=== PATIENT | male | born 1950 | race Caucasian/White ===

== ENCOUNTER 2019-08-26 01:59 | Emergency (ER) | payer OTHER ==
[~2019-08-26] VITALS: Ht 177.8 cm; Wt 140.6 kg
[2019-08-26] MEDS ORDERED: ACET500 PO (02:51)
[2019-08-26] MEDS ORDERED: ALBU3IS INH (02:52)
[2019-08-26] MEDS ORDERED: ALLO300 PO (02:52)
[2019-08-26] MEDS ORDERED: ATOR40TA PO (02:53)
[2019-08-26] MEDS ORDERED: BENZ100A PO (02:53)
[2019-08-26] MEDS ORDERED: BUDE6HFA INH (02:54)
[2019-08-26] MEDS ORDERED: CARV6.25 PO (02:54)
[2019-08-26] MEDS ORDERED: BUPR150ER PO (02:54)
[2019-08-26] MEDS ORDERED: CELE100 PO (02:55)
[2019-08-26] MEDS ORDERED: Prozac20 MG PO (02:56)
[2019-08-26] MEDS ORDERED: GABA100 PO (02:56)
[2019-08-26] MEDS ORDERED: FINA5 PO (02:56)
[2019-08-26] MEDS ORDERED: GUAI200 PO (02:57)
[2019-08-26] MEDS ORDERED: LOSA50 PO (02:59)
[2019-08-26] MEDS ORDERED: PRAZ1 PO (02:59)
[2019-08-26] MEDS ORDERED: METF500 PO (02:59)
[2019-08-26] MEDS ORDERED: Zantac150 MG PO (03:00)
[2019-08-26] MEDS ORDERED: TAMS.4ER PO (03:00)
[2019-08-26 03:29] LABS: BASOPHILS ABSOLUTE AUTO 0.09 K/mm3 (0.00-0.23); BASOPHILS PERCENT AUTO 1 % (0-2); EOSINOPHILS ABSOLUTE AUTO 0.48 K/mm3 (0.00-0.68); EOSINOPHILS PERCENT AUTO 5 % (0-6); Hemoglobin 13.9 g/dL (13.5-17.5); IMMATURE GRAN ABSOLUTE AUTO 0.02 K/mm3 (0.00-0.10); IMMATURE GRAN PERCENT AUTO 0 % (0-1); LYMPHOCYTES ABSOLUTE AUTO 2.24 K/mm3 (0.84-5.20); LYMPHOCYTES PERCENT AUTO 25 % (21-46); MONOCYTES ABSOLUTE AUTO 1.19 K/mm3 (0.16-1.47); MONOCYTES PERCENT AUTO 14 % (4-13); Mean Corpuscular HGB 29.3 pg (26.0-34.0); Mean Corpuscular HGB Conc 30.9 g/dL (31.5-36.5); Mean Corpuscular Volume 95 fL (80-100); Mean Platelet Volume 9.8 fL (9.1-12.4); NEUTROPHILS ABSOLUTE AUTO 4.82 K/mm3 (1.96-9.15); NEUTROPHILS PERCENT AUTO 55 % (41-73); Platelet Count 203 K/mm3 (150-400); RDW Coefficient Variation 13.9 % (11.7-14.2); Red Blood Cell Count 4.74 M/mm3 (4.30-5.90); White Blood Cell Count 8.84 K/mm3 (4.00-11.30)
[2019-08-26 03:46] LABS: Alanine Aminotransfer (ALT/SGP 30 U/L (12-78); Albumin, Blood 3.8 g/dL (3.4-5.0); Albumin/Globulin Ratio 1.3 (0.8-1.8); Alk Phos 73 U/L (50-136); Anion Gap 6 mmol/L (6-16); Aspartate Aminotrans (AST/SGOT 21 U/L (12-37); Bilirubin, Total 1.1 mg/dL (0.1-1.0); Blood Urea Nitrogen 18 mg/dL (8-24); Bun/Creatinine Ratio 20.8 (12.0-20.0); CO2, Blood 29 mmol/L (21-32); Chloride, Blood 103 mmol/L (98-108); Creatinine, Blood 0.86 mg/dL (0.60-1.20); Glomerular Filtration Rate >60 (60-); Glucose, Blood 116 mg/dL (70-99); Potassium, Blood 4.2 mmol/L (3.5-5.5); Sodium, Blood 138 mmol/L (136-145); Total Protein, Blood 6.8 g/dL (6.4-8.2)
[2019-08-26] MEDS ORDERED: Prednisone20 MG PO (07:01)
== END 2019-08-26 07:08 | disposition home or self-care (01) ==
LOC: ER 01:59
PROVIDERS: Emergency Medicine
DX: J44.1 Chronic obstructive pulmonary disease with (acute) exacerbation (principal); Z79.899 Other long term (current) drug therapy; Z79.84 Long term (current) use of oral hypoglycemic drugs
CPT/HCPCS: 36415; 71046; 71260; 80053; 83880; 84484; 85025; 93005; 93010; 94644; 96374-59; 99285-25; J2930; Q9967

== ENCOUNTER 2019-09-22 14:58 | Emergency (ER) | payer OTHER ==
[~2019-09-22] VITALS: Ht 177.8 cm; Wt 140.6 kg
[~2019-09-22 14:58] MED LIST: ACET500 PO; ALBU3IS INH; ALLO300 PO; ATOR40TA PO; BENZ100A PO; BUDE6HFA INH; BUPR150ER PO; CARV6.25 PO; CELE100 PO; FINA5 PO; GABA100 PO; GUAI200 PO; LOSA50 PO; METF500 PO; PRAZ1 PO; Prednisone20 MG PO; Prozac20 MG PO; TAMS.4ER PO; Zantac150 MG PO
[2019-09-22 15:22] LABS: BASOPHILS ABSOLUTE AUTO 0.07 K/mm3 (0.00-0.23); BASOPHILS PERCENT AUTO 1 % (0-2); EOSINOPHILS PERCENT AUTO 17 % (0-6); Hemoglobin 14.9 g/dL (13.5-17.5); IMMATURE GRAN ABSOLUTE AUTO 0.02 K/mm3 (0.00-0.10); IMMATURE GRAN PERCENT AUTO 0 % (0-1); LYMPHOCYTES ABSOLUTE AUTO 2.45 K/mm3 (0.84-5.20); LYMPHOCYTES PERCENT AUTO 28 % (21-46); MONOCYTES ABSOLUTE AUTO 0.97 K/mm3 (0.16-1.47); MONOCYTES PERCENT AUTO 11 % (4-13); Mean Corpuscular HGB 29.8 pg (26.0-34.0); Mean Corpuscular Volume 96 fL (80-100); Mean Platelet Volume 9.2 fL (9.1-12.4); NEUTROPHILS ABSOLUTE AUTO 3.83 K/mm3 (1.96-9.15); NEUTROPHILS PERCENT AUTO 43 % (41-73); Platelet Count 213 K/mm3 (150-400); RDW Coefficient Variation 13.9 % (11.7-14.2); RDW Standard Deviation 49.4 fL (35.1-46.3); White Blood Cell Count 8.84 K/mm3 (4.00-11.30)
[2019-09-22 15:43] LABS: Alanine Aminotransfer (ALT/SGP 34 U/L (12-78); Albumin/Globulin Ratio 1.2 (0.8-1.8); Alk Phos 71 U/L (50-136); Anion Gap 8 mmol/L (6-16); Aspartate Aminotrans (AST/SGOT 17 U/L (12-37); Bilirubin, Total 1.2 mg/dL (0.1-1.0); Blood Urea Nitrogen 11 mg/dL (8-24); Bun/Creatinine Ratio 16.4 (12.0-20.0); CO2, Blood 28 mmol/L (21-32); Calcium, Blood 9.7 mg/dL (8.5-10.1); Chloride, Blood 104 mmol/L (98-108); Creatinine, Blood 0.67 mg/dL (0.60-1.20); Globulin, Blood 3.2 g/dL (2.2-4.0); Glomerular Filtration Rate >60 (60-); Glucose, Blood 107 mg/dL (70-99); Potassium, Blood 4.6 mmol/L (3.5-5.5); Sodium, Blood 140 mmol/L (136-145); Total Protein, Blood 7.2 g/dL (6.4-8.2)
[2019-09-22] MEDS ORDERED: Prednisone20 MG PO (16:32)
[2019-09-22] MEDS ORDERED: Zithromax250 MG PO (16:32)
== END 2019-09-22 17:10 | disposition home or self-care (01) ==
LOC: ER 14:58
PROVIDERS: Physician Assistant
DX: J44.1 Chronic obstructive pulmonary disease with (acute) exacerbation (principal); E66.01 Morbid (severe) obesity due to excess calories; Z68.41 Body mass index [BMI] 40.0-44.9, adult; Z79.899 Other long term (current) drug therapy; Z79.51 Long term (current) use of inhaled steroids; Z79.84 Long term (current) use of oral hypoglycemic drugs
CPT/HCPCS: 71046; 80053; 83880; 85025; 93005; 93010; 96374; 99284-25; J2930

== ENCOUNTER 2023-02-14 19:04 | Inpatient (IN) | payer OTHER ==
[~2023-02-14] VITALS: Ht 180.3 cm; Wt 144.3 kg
[~2023-02-14 19:04] MED LIST changes: +CEPH500 PO; +MECL25 PO; +Zithromax250 MG PO
[2023-02-14 19:46] LABS: BASOPHILS ABSOLUTE AUTO 0.08 K/mm3 (0.00-0.23); BASOPHILS PERCENT AUTO 1 % (0-2); EOSINOPHILS ABSOLUTE AUTO 0.22 K/mm3 (0.00-0.68); EOSINOPHILS PERCENT AUTO 2 % (0-6); Hematocrit 40.8 % (37.0-53.0); Hemoglobin 13.1 g/dL (13.5-17.5); IMMATURE GRAN ABSOLUTE AUTO 0.05 K/mm3 (0.00-0.10); IMMATURE GRAN PERCENT AUTO 1 % (0-1); LYMPHOCYTES ABSOLUTE AUTO 2.14 K/mm3 (0.84-5.20); LYMPHOCYTES PERCENT AUTO 21 % (21-46); MONOCYTES ABSOLUTE AUTO 1.29 K/mm3 (0.16-1.47); MONOCYTES PERCENT AUTO 13 % (4-13); Mean Corpuscular HGB 29.6 pg (26.0-34.0); Mean Corpuscular HGB Conc 32.1 g/dL (31.5-36.5); Mean Corpuscular Volume 92 fL (80-100); Mean Platelet Volume 9.5 fL (9.1-12.4); NEUTROPHILS ABSOLUTE AUTO 6.41 K/mm3 (1.96-9.15); NEUTROPHILS PERCENT AUTO 63 % (41-73); Platelet Count 404 K/mm3 (150-400); RDW Coefficient Variation 13.3 % (11.7-14.2); RDW Standard Deviation 45.7 fL (35.1-46.3); Red Blood Cell Count 4.42 M/mm3 (4.30-5.90); White Blood Cell Count 10.19 K/mm3 (4.00-11.30)
[2023-02-14 19:54] LABS: Base Excess Venous 0.1 mmol/L; Bicarbonate Venous 24.1 mmol/L (24.0-30.0); PCO2 Venous 42.8 mmHg (38-42); pH Blood Venous 7.38 (7.34-7.37)
[2023-02-14 20:01] LABS: Albumin, Blood 2.9 g/dL (3.4-5.0); Albumin/Globulin Ratio 0.7 (0.8-1.8); Bilirubin, Total 0.9 mg/dL (0.1-1.0); Bun/Creatinine Ratio 10.9 (12.0-20.0); Calcium, Blood 9.1 mg/dL (8.5-10.1); Creatinine, Blood 1.75 mg/dL (0.60-1.20); Potassium, Blood 2.9 mmol/L (3.5-5.5); Total Protein, Blood 6.9 g/dL (6.4-8.2)
[2023-02-14 20:29] LABS: Creatine Kinase MB Index 0.4 (0.0-4.0)
[2023-02-14 21:43] LABS: Source, Urine Foley catheter
[2023-02-14 21:47] LABS: Bilirubin, Urine Neg (Neg); Blood, Urine 5+ (Neg); Glucose Qualitative, Urine Neg (Neg); Ketones, Urine Neg (Neg); Leukocyte Esterase, Urine 1+ (Neg); Nitrite, Urine Neg (Neg); Protein, Urine 3+ (Neg); Specific Gravity, Urine 1.015 (1.003-1.022); Urobilinogen, Urine NORM (Normal)
[2023-02-14 22:00] LABS: Appearance, Urine Hazy (Clear); Color, Urine Yellow (P-Yellow)
[2023-02-14 22:01] LABS: Bacteria Few /hpf; Red Blood Cells, Urine TNTC /hpf (0-2); Squamous Epithelial Cells Not Seen /hpf (Few); White Blood Cells, Urine 25-50 /hpf (0-5)
[2023-02-14 22:52] LABS: Bun/Creatinine Ratio 10.4 (12.0-20.0); Calcium, Blood 8.6 mg/dL (8.5-10.1); Creatinine, Blood 1.83 mg/dL (0.60-1.20); Potassium, Blood 3.2 mmol/L (3.5-5.5)
[2023-02-15 00:03] LABS: Source, Urine Clean Catch
[2023-02-15 00:05] LABS: Bilirubin, Urine Neg (Neg); Blood, Urine 5+ (Neg); Glucose Qualitative, Urine Neg (Neg); Ketones, Urine 1+ (Neg); Leukocyte Esterase, Urine 2+ (Neg); Nitrite, Urine Pos (Neg); Protein, Urine 4+ (Neg); Urobilinogen, Urine NORM (Normal)
[2023-02-15 00:18] LABS: Appearance, Urine Cloudy (Clear); Bacteria Mod /hpf; Color, Urine Red (P-Yellow); Red Blood Cells, Urine TNTC /hpf (0-2); Squamous Epithelial Cells Not Seen /hpf (Few); White Blood Cells, Urine 25-50 /hpf (0-5)
[2023-02-15 03:08] VITALS: BP 162/94
--- NOTE | 2023-02-15 04:23 | NUR ---
SHIFT SUMMARY PT ADMITTED THIS AM FROM THE ED AT 0250, REPORT RECEIVED FROM KLEVER CARRION. PT AOX4 AND PLEASANT, COOPERATIVE. HE IS ON BEDREST FOR NOW DUE TO HIS SEVERE WEAKNESS, PT/OT THERAPY IS ORDERED. HE HAD A FLANAGAN CATHETER PLACED IN THE ED TO MONITOR STRICT I'S AND O'S. HE IS ON TELE, SR. PT STATES HE HAS NOT EATEN IN THREE DAYS DUE TO BEING DOWN AT HOME. HE WAS NAUSEOUS THIS AM AND MEDICATED PER THE EMAR. HE IS NOW RESTING COMFORTABLY, ATTEMPTING TO SLEEP. CALL LIGHT IS WITHIN REACH AND BED IN THE LOWEST POSITION. WILL REPORT TO ONCOMING NURSE.
[2023-02-15 07:32] VITALS: BP 120/61
[2023-02-15 08:01] LABS: BASOPHILS ABSOLUTE AUTO 0.07 K/mm3 (0.00-0.23); BASOPHILS PERCENT AUTO 1 % (0-2); EOSINOPHILS ABSOLUTE AUTO 0.29 K/mm3 (0.00-0.68); EOSINOPHILS PERCENT AUTO 3 % (0-6); Hematocrit 38.9 % (37.0-53.0); Hemoglobin 12.6 g/dL (13.5-17.5); IMMATURE GRAN ABSOLUTE AUTO 0.05 K/mm3 (0.00-0.10); IMMATURE GRAN PERCENT AUTO 1 % (0-1); LYMPHOCYTES ABSOLUTE AUTO 1.96 K/mm3 (0.84-5.20); LYMPHOCYTES PERCENT AUTO 23 % (21-46); MONOCYTES ABSOLUTE AUTO 1.12 K/mm3 (0.16-1.47); MONOCYTES PERCENT AUTO 13 % (4-13); Mean Corpuscular HGB 30.1 pg (26.0-34.0); Mean Corpuscular HGB Conc 32.4 g/dL (31.5-36.5); Mean Corpuscular Volume 93 fL (80-100); Mean Platelet Volume 9.4 fL (9.1-12.4); NEUTROPHILS ABSOLUTE AUTO 5.23 K/mm3 (1.96-9.15); NEUTROPHILS PERCENT AUTO 60 % (41-73); Platelet Count 276 K/mm3 (150-400); RDW Coefficient Variation 13.7 % (11.7-14.2); RDW Standard Deviation 46.6 fL (35.1-46.3); Red Blood Cell Count 4.18 M/mm3 (4.30-5.90); White Blood Cell Count 8.72 K/mm3 (4.00-11.30)
[2023-02-15 08:22] LABS: Albumin, Blood 2.6 g/dL (3.4-5.0); Albumin/Globulin Ratio 0.7 (0.8-1.8); Bilirubin, Total 0.6 mg/dL (0.1-1.0); Bun/Creatinine Ratio 8.7 (12.0-20.0); Calcium, Blood 8.3 mg/dL (8.5-10.1); Creatinine, Blood 2.07 mg/dL (0.60-1.20); Globulin, Blood 3.6 g/dL (2.2-4.0); Magnesium, Blood 1.9 mg/dL (1.6-2.4); Phosphorus, Blood 3.2 mg/dL (2.5-4.9); Total Protein, Blood 6.2 g/dL (6.4-8.2)
[2023-02-15 16:10] VITALS: BP 148/79
--- NOTE | 2023-02-15 18:04 | NUR ---
SHIFT SUMMARY PT WITH PT/OT TODAY. ABLE TO SIT UP WITH P.T. AND STAND A COUPLE TIMES WITH O.T. REQUIRES ASSISTANCE WITH SITTING UP IN BED. REPORTS PAIN TO BACK THIS AFTERNOON WHICH HE SAYS HE DOESN'T GENERALLY HAVE. TYLENOL GIVEN. WITH MONITER FOR EFFECTIVENESS. HAD NAUSEA THIS MORNING WHICH DID RESOLVE SLOWLY AFTER ZOFRAN, SLY MIST AND CRACKERS GIVEN. SMALL CLOTS SEEN IN CATHETER TUBING TODAY. REQUESTING MASHA TO STAY IN FOR ANOTHER NIGHT.
[2023-02-15 19:29] VITALS: BP 137/69
--- NOTE | 2023-02-16 04:18 | NUR ---
SHIFT SUMMARY PATIENT HAD NO ACUTE CHANGES. AXOX 4 AND BEDREST. PIV REMAINS INTACT. NS INFUSING AT 150 mL/HR. TELE MONITOR NSR 86. FLANAGAN PATENT AND DRAINING PIMK TINGED URINE. REPORTED BACK PAIN X ONE AND TYLENOL 1,000 MG GIVEN PER EMAR. DENIES CHEST PAIN, SOB, AND N/V. VSS/AFEBRILE. CALL LIGHT IN REACH. BED IN LOWEST POSITION. WILL CONTINUE TO MONITOR UNTIL DAY SHIFT NURSE ASSUMES CARE.
[2023-02-16 04:43] VITALS: BP 137/77
[2023-02-16 04:53] LABS: BASOPHILS ABSOLUTE AUTO 0.07 K/mm3 (0.00-0.23); BASOPHILS PERCENT AUTO 1 % (0-2); EOSINOPHILS ABSOLUTE AUTO 0.29 K/mm3 (0.00-0.68); EOSINOPHILS PERCENT AUTO 4 % (0-6); Hematocrit 34.4 % (37.0-53.0); Hemoglobin 10.7 g/dL (13.5-17.5); IMMATURE GRAN ABSOLUTE AUTO 0.08 K/mm3 (0.00-0.10); IMMATURE GRAN PERCENT AUTO 1 % (0-1); LYMPHOCYTES PERCENT AUTO 25 % (21-46); MONOCYTES PERCENT AUTO 11 % (4-13); Mean Corpuscular HGB 29.4 pg (26.0-34.0); Mean Corpuscular HGB Conc 31.1 g/dL (31.5-36.5); Mean Corpuscular Volume 95 fL (80-100); Mean Platelet Volume 9.9 fL (9.1-12.4); NEUTROPHILS ABSOLUTE AUTO 4.74 K/mm3 (1.96-9.15); NEUTROPHILS PERCENT AUTO 59 % (41-73); Platelet Count 228 K/mm3 (150-400); RDW Coefficient Variation 13.7 % (11.7-14.2); RDW Standard Deviation 47.7 fL (35.1-46.3); Red Blood Cell Count 3.64 M/mm3 (4.30-5.90); White Blood Cell Count 8.08 K/mm3 (4.00-11.30)
[2023-02-16 08:47] LABS: Bun/Creatinine Ratio 9.2 (12.0-20.0); Calcium, Blood 8.2 mg/dL (8.5-10.1); Creatinine, Blood 2.4 mg/dL (0.60-1.20); Potassium, Blood 3.2 mmol/L (3.5-5.5)
[2023-02-16 16:36] VITALS: BP 123/63
--- NOTE | 2023-02-16 18:40 | NUR ---
SUMMARY- PT DID FEEL SOB TODAY-STARTED PT ON 2 L O2. PT DID FEEL BETER AFTER O2 PLACEMENT. PT REFUSED PT TWICE TODAY. RN ENCOURAGED MOVEMENT AND PT REFUSED. PT'S APPETITE DECREASED TODAY. PAIN CONTROLLED WITH TYLENOL.
[2023-02-16 19:34] VITALS: BP 116/54
[2023-02-16 20:41] LABS: Eosinophils-Raw #,Urine 0
[2023-02-17 02:40] VITALS: BP 152/76
[2023-02-17 05:02] LABS: Albumin, Blood 2.5 g/dL (3.4-5.0); Anion Gap 7 mmol/L (6-16); Blood Urea Nitrogen 25 mg/dL (8-24); CO2, Blood 21 mmol/L (21-32); Calcium, Blood 8.7 mg/dL (8.5-10.1); Chloride, Blood 113 mmol/L (98-108); Creatinine, Blood 2.28 mg/dL (0.60-1.20); Glomerular Filtration Rate 29 (60-); Glucose, Blood 136 mg/dL (70-99); Phosphorus, Blood 3.2 mg/dL (2.5-4.9); Potassium, Blood 3.7 mmol/L (3.5-5.5); Sodium, Blood 141 mmol/L (136-145)
--- NOTE | 2023-02-17 05:53 | NUR ---
INFERTILITY NURSE SUMMARY PT A/OX3; PT HAVING EPISODIC CONFUSION/FORGETFULNESS. PT DID NOT SLEEP WELL AND C/O 10/10 PAIN IN ABD/FLANK. NEW ORDER FOR 25-50MCG FENTANYL Q4. MED PER EMAR. PT VERY RESTLESS T/O THE NIGHT. PT ON 3L O2 NC; PT KEEPS PULLING O2 OFF. FOUND PT THIS AM W/FLANAGAN CATH DISCONNECTED, IV PULLED OUT, O2 OFF, TELE PULLED OFF, AND NAKED SITTING AT BEDSIE. PT WAS CONFUSED ABOUT HE GOT THERE IN THAT STATE. PT VERY WEAK AND NOT ABLE TO STAND TO PIVOT TO BSC. PLACED ON BEDPAN BUT PT NOT ABLE TO HAVE BM; PER PT NO BM SINCE FALL AT HOME. BED ALARM SET AND CALL LIGHT ACCESSIBLE.
[2023-02-17 07:22] VITALS: BP 132/61
--- NOTE | 2023-02-17 17:16 | NUR ---
Day Treatment Clinician/Art Therapist: Shraddha had the SOFTWARE QUALITY TEST ENGINEER Ayla fix the patients Tele multiple times. As soon as she leaves the room the patient then starts to take the tele off. Nurse Bindu said she would contact the DR to see what action to take next.
[2023-02-17 18:19] VITALS: BP 156/82
--- NOTE | 2023-02-17 19:13 | NUR ---
SHIFT SUMMARY PT SOB THROUGH THE DAY. PALE THIS EVENING AND ELEVATED RESP. SATS HIGH 90'S. REMOVED O2 AND DISCUSSED WITH ONCOMING RN. COLORING IMPROVED DURING BEDSIDE SHIFT REPORT. PT REPORTS BEING HOT AND COLD AND STATES IT IS FROM HIS LUPRON. PAIN IMPROVED AFTER TRAMADOL GIVEN. SWELLING IN LEGS WORSE AFTER BEING IN CHAIR FOR A PERIOD OF TIME AT LUNCH.
[2023-02-17 20:02] VITALS: BP 150/78
[2023-02-18 02:39] VITALS: BP 147/76
--- NOTE | 2023-02-18 04:21 | NUR ---
PHYSICAL THERAPIST CENTER MANAGER SUMMARY PT A/OX4. PT HAS BEEN MUCH MORE ORIENTED THIS SHIFT THAN PREVIOUS PHYSICAL THERAPIST CENTER MANAGER. ABLE TO MAKE NEEDS KNOWN. PT REPORTS PAIN MUCH MORE CONTROLLED WITH TRAMODOL AND ABLE TO SLEEP RESTFULLY T/O THE NIGHT. PT USING NC 02 INTERMITTANTLY WHEN SOB AND WHILE SLEEPING. PT CONT TO HAVE SUBSTANTIAL URINE OUT PUT--URINE HAS REDISH TINGE. NOTE FROM DR CATALAN TO LEAVE FLANAGAN INPLACE DUE TO POSSIBLE BLADDER OBSTRUCTION. PT TO FOLLOW UP WITH UROLOGIST.
[2023-02-18 05:22] LABS: BASOPHILS ABSOLUTE AUTO 0.05 K/mm3 (0.00-0.23); BASOPHILS PERCENT AUTO 1 % (0-2); EOSINOPHILS ABSOLUTE AUTO 0.26 K/mm3 (0.00-0.68); EOSINOPHILS PERCENT AUTO 3 % (0-6); Hematocrit 38.4 % (37.0-53.0); Hemoglobin 11.9 g/dL (13.5-17.5); IMMATURE GRAN ABSOLUTE AUTO 0.11 K/mm3 (0.00-0.10); IMMATURE GRAN PERCENT AUTO 2 % (0-1); LYMPHOCYTES ABSOLUTE AUTO 1.75 K/mm3 (0.84-5.20); LYMPHOCYTES PERCENT AUTO 23 % (21-46); MONOCYTES ABSOLUTE AUTO 1.12 K/mm3 (0.16-1.47); MONOCYTES PERCENT AUTO 15 % (4-13); Mean Corpuscular HGB 29.5 pg (26.0-34.0); Mean Corpuscular Volume 95 fL (80-100); Mean Platelet Volume 9.5 fL (9.1-12.4); NEUTROPHILS ABSOLUTE AUTO 4.28 K/mm3 (1.96-9.15); NEUTROPHILS PERCENT AUTO 57 % (41-73); Platelet Count 230 K/mm3 (150-400); RDW Coefficient Variation 13.6 % (11.7-14.2); Red Blood Cell Count 4.04 M/mm3 (4.30-5.90); White Blood Cell Count 7.57 K/mm3 (4.00-11.30)
[2023-02-18 05:56] LABS: Albumin, Blood 2.4 g/dL (3.4-5.0); Anion Gap 4 mmol/L (6-16); Blood Urea Nitrogen 22 mg/dL (8-24); Bun/Creatinine Ratio 12.9 (12.0-20.0); CO2, Blood 25 mmol/L (21-32); Calcium, Blood 9.1 mg/dL (8.5-10.1); Chloride, Blood 114 mmol/L (98-108); Glomerular Filtration Rate 42 (60-); Glucose, Blood 114 mg/dL (70-99); Phosphorus, Blood 4.1 mg/dL (2.5-4.9); Potassium, Blood 3.9 mmol/L (3.5-5.5); Sodium, Blood 143 mmol/L (136-145)
[2023-02-18 07:11] VITALS: BP 141/73
[2023-02-18] MEDS ORDERED: DOCU100 PO (10:25)
[2023-02-18] MEDS ORDERED: LIDO700A20 TOP (10:25)
[2023-02-18] MEDS ORDERED: MIRALAX17 GM PO (10:26)
[2023-02-18 11:46] LABS: SARS-Cov-2 (COVID-19) PCR, MMC NEGATIVE (NEGATIVE)
--- NOTE | 2023-02-18 13:52 | NUR ---
DC- PT TRANSPORTED TO [facility] VIA WC. PT IN STABLE CONDITION. PT LEFT WITH FLANAGAN CATHETER IN PLACE PER BRICKLAYER SEWER ORDER. REPORT GIVEN TO [facility] SADE. ALL QUESTIONS ANSWERED. PT LEFT WITH ALL BELONGINGS. PT LEFT WITH O2 AT 2 L.
== END 2023-02-18 13:31 | DRG 683 ==
LOC: ER 19:04 → MEDS 19:05 → ENPENDDIS 02-18 10:13 → MEDS 02-18 13:31
PROVIDERS: Family Medicine; Internal Medicine; Internal Medicine Nephrology; Student in an Organized Health Care Education/Training Program; ADMIT Internal Medicine
PROC: 0T9B70Z Drainage of Bladder with Drainage Device, Via Natural or Artificial Opening (ICD-10-PCS; principal; 2023-02-14)
DX: N17.9 Acute kidney failure, unspecified (principal); E87.20 Acidosis, unspecified; M62.82 Rhabdomyolysis; Z68.41 Body mass index [BMI] 40.0-44.9, adult; G91.0 Communicating hydrocephalus; N13.6 Pyonephrosis; Z20.822 Contact with and (suspected) exposure to COVID-19; E66.01 Morbid (severe) obesity due to excess calories; I35.0 Nonrheumatic aortic (valve) stenosis; E86.0 Dehydration; J44.9 Chronic obstructive pulmonary disease, unspecified; I10 Essential (primary) hypertension; I25.10 Atherosclerotic heart disease of native coronary artery without angina pectoris; I25.9 Chronic ischemic heart disease, unspecified; G89.29 Other chronic pain; M54.9 Dorsalgia, unspecified; E87.6 Hypokalemia; N32.0 Bladder-neck obstruction; I71.9 Aortic aneurysm of unspecified site, without rupture; R31.9 Hematuria, unspecified; Z85.46 Personal history of malignant neoplasm of prostate; Z95.5 Presence of coronary angioplasty implant and graft; Z79.899 Other long term (current) drug therapy
CPT/HCPCS: 36415; 51702; 71046; 76770; 80048; 80053; 80069; 81001; 82550; 82553; 82570; 82803; 82947; 83605; 83690; 83735; 83880; 84100; 84156; 85025; 87040; 87086; 87205; 93005; 93010; 93306; 94640; 94664; 94760; 96361; 96361-59; 96365-59; 96375-59; 97110; 97112; 97161; 97166; 97530; 97535; 99285-25; A9270; G0378; J0696; J3010; J3480; J7030; U0004

== ENCOUNTER 2023-03-02 15:26 | Inpatient (IN) | payer OTHER ==
[~2023-03-02] VITALS: Ht 182.9 cm; Wt 144.8 kg
[~2023-03-02 15:26] MED LIST changes: +ALBU2.5V5 INH; -ALBU3IS INH; +DOCU100 PO; +LIDO700A20 TOP; +MIRALAX17 GM PO
[2023-03-02 16:44] LABS: BASOPHILS ABSOLUTE AUTO 0.04 K/mm3 (0.00-0.23); BASOPHILS PERCENT AUTO 1 % (0-2); EOSINOPHILS ABSOLUTE AUTO 0.17 K/mm3 (0.00-0.68); EOSINOPHILS PERCENT AUTO 2 % (0-6); Hematocrit 29.9 % (37.0-53.0); Hemoglobin 9.8 g/dL (13.5-17.5); IMMATURE GRAN ABSOLUTE AUTO 0.03 K/mm3 (0.00-0.10); IMMATURE GRAN PERCENT AUTO 0 % (0-1); LYMPHOCYTES ABSOLUTE AUTO 1.39 K/mm3 (0.84-5.20); LYMPHOCYTES PERCENT AUTO 17 % (21-46); MONOCYTES PERCENT AUTO 13 % (4-13); Mean Corpuscular HGB 29.2 pg (26.0-34.0); Mean Corpuscular HGB Conc 32.8 g/dL (31.5-36.5); Mean Corpuscular Volume 89 fL (80-100); Mean Platelet Volume 9.7 fL (9.1-12.4); NEUTROPHILS ABSOLUTE AUTO 5.37 K/mm3 (1.96-9.15); NEUTROPHILS PERCENT AUTO 67 % (41-73); Platelet Count 266 K/mm3 (150-400); RDW Coefficient Variation 14.2 % (11.7-14.2); RDW Standard Deviation 45.8 fL (35.1-46.3); Red Blood Cell Count 3.36 M/mm3 (4.30-5.90)
[2023-03-02 17:08] LABS: Albumin, Blood 2.7 g/dL (3.4-5.0); Albumin/Globulin Ratio 0.8 (0.8-1.8); Bilirubin, Total 0.9 mg/dL (0.1-1.0); Bun/Creatinine Ratio 8.8 (12.0-20.0); Calcium, Blood 8.8 mg/dL (8.5-10.1); Creatinine, Blood 6.81 mg/dL (0.60-1.20); Globulin, Blood 3.4 g/dL (2.2-4.0); Magnesium, Blood 1.8 mg/dL (1.6-2.4); Potassium, Blood 5.3 mmol/L (3.5-5.5); Total Protein, Blood 6.1 g/dL (6.4-8.2)
[2023-03-02 18:19] LABS: Source, Urine Clean Catch
[2023-03-02 18:25] LABS: Appearance, Urine Cloudy (Clear); Bilirubin, Urine Neg (Neg); Blood, Urine 4+ (Neg); Color, Urine Red (P-Yellow); Glucose Qualitative, Urine Neg (Neg); Ketones, Urine Neg (Neg); Leukocyte Esterase, Urine Neg (Neg); Nitrite, Urine Neg (Neg); Protein, Urine 4+ (Neg); Urobilinogen, Urine NORM (Normal)
[2023-03-02 18:52] LABS: Red Blood Cells, Urine TNTC /hpf (0-2)
[2023-03-02 18:53] LABS: Squamous Epithelial Cells Not Seen /hpf (Few); White Blood Cells, Urine 25-50 /hpf (0-5)
[2023-03-02 18:54] LABS: Bacteria Mod /hpf
[2023-03-02 20:21] VITALS: BP 144/78
[2023-03-03 03:23] VITALS: BP 132/74
[2023-03-03 03:36] LABS: Hematocrit 29.8 % (37.0-53.0); Hemoglobin 9.9 g/dL (13.5-17.5); Mean Corpuscular HGB 29.2 pg (26.0-34.0); Mean Corpuscular HGB Conc 33.2 g/dL (31.5-36.5); Mean Corpuscular Volume 88 fL (80-100); Mean Platelet Volume 9.3 fL (9.1-12.4); Platelet Count 228 K/mm3 (150-400); RDW Coefficient Variation 14.2 % (11.7-14.2); RDW Standard Deviation 45.1 fL (35.1-46.3); Red Blood Cell Count 3.39 M/mm3 (4.30-5.90); White Blood Cell Count 7.21 K/mm3 (4.00-11.30)
[2023-03-03 04:00] LABS: Albumin, Blood 2.5 g/dL (3.4-5.0); Albumin/Globulin Ratio 0.8 (0.8-1.8); Bilirubin, Total 1.1 mg/dL (0.1-1.0); Bun/Creatinine Ratio 8.7 (12.0-20.0); Calcium, Blood 7.9 mg/dL (8.5-10.1); Creatinine, Blood 6.9 mg/dL (0.60-1.20); Globulin, Blood 3.3 g/dL (2.2-4.0); Magnesium, Blood 1.7 mg/dL (1.6-2.4); Potassium, Blood 5.3 mmol/L (3.5-5.5); Total Protein, Blood 5.8 g/dL (6.4-8.2)
--- NOTE | 2023-03-03 05:53 | NUR ---
SUMMARY: PATIENT ADMITTED OVERNIGHT. FOR YOSEPH. PATIENT HAS BEEN HAVING BLOOD IN HIS URINE THROUGHOUT OUT THE NIGHT. CONDOM CATH PLACED ON PATIENT HE IS INCONTINENT AND FREQUENTLY URINATING REFUSED TO WEAR A BREIF. IV FLUIDS RUNNING UNTIL THIS MORNING. PATIENT BECAME VERY SOB AND STATING HE COULD NOT BREATH. O2 STABLE. DR. HUNTLEY TO BEDSIDE, EKG DONE, BREATHING TREATMENT GIVEN, ONE DOSE ATIVAN GIVEN, CHEST XRAY AND TROPI DRAWN. RESULTS PENDING. PATIENT REPORTS FEELING SLIGHTLY BETTER. VSS AT THIS TIME.
[2023-03-03 07:26] VITALS: BP 156/94
[2023-03-03 15:23] VITALS: BP 119/61
--- NOTE | 2023-03-03 17:23 | NUR ---
SHIFT SUMMARY PT AOX3, CALM AND COOPERATIVE WITH CARE. PT SLEPT ON AND OFF DURING THE SHIFT. O2 INCREASED TO 4 L AFTER SATS DROPPING TO 88. O2 INCREASED TO 97, DROPPED O2 BACK DOWN TO 3 L. PT RECEIVING BREATHING TREATMENTS Q4, SOB AND INCREASED WHEEZING. DR RUIZ ORDERED SOLU-MEDROL Q6. PT CONTINUES TO HAVE BLOODY URINE, WAITING ON NEPHROLOGY CONSULT. PT IS INCONTINENT AND HAS CONDOM CATH IN PLACE, WORKING WELL. FALL PREVENTION MEASURES IN PLACE
--- NOTE | 2023-03-03 18:40 | NUR ---
REVIEWED NOTES AND ASSESSMENTS DOCUMENTED BY ESHA, STUDENT NURSE AND AGREE WITH HER FINDING FOR THIS PATIENT.
[2023-03-03 20:28] VITALS: BP 132/70
--- NOTE | 2023-03-03 22:16 | NUR ---
SEEN BY DR ORLANDO RE BLADDER ISSUE, HEMATURIA. ORDERED CONTINUOUS BLADDER IRRIGATION AT 40 - 100 CC/HR. SOB, NOT WEARING NC, APPARENT MOUTH BREATHER. PLACED ON MASK O2. O2 SATS 90%. HOB ELEVATED. CALL LIGHT IN REACH
--- NOTE | 2023-03-03 22:20 | NUR ---
START OF SHIFT THIS STUDENT NURSE ASSUMED CARE OF THE PATIENT UNDER NURSE RUBIN MARTINEZ AT 1900. PT COMPLAINS OF PAIN AND SOB, CALLED RESPIRATORY TO OBTAIN BREATHING MASK TO REPLACE N/C. PATIENT O2 ABOVE 90% ON 3L VIA FACE MASK. CONDOM CATHETER WAS NOT ON, DR CANDELARIA AT BEDSIDE AROUND 2019. ORDERED AN INDWELLING CATHETER PLACED WITH CONTINOUS BLADDER IRIGATION, MEDS ADMINISTERED, PATIENT ASSESSED. PT LEFT IN A POSITION OF SAFETY WITH CALL LIGHT WITHIN REACH, NONSKID SOCKS ON FEET, BED IN LOW POSITION, AND SIDE RAILS RAISED. VITALS STABLE, WILL CONTINUE TO MONITOR.
--- NOTE | 2023-03-03 23:13 | NUR ---
BLADDER IRRIGATION NOTE BLADDER IRRIGATION STARTED AFTER [address] FLANAGAN PLACED WITH STERILE TCHNIQUE. ASSISTED BY PCU CHARGE NURSE (ROSALBA), MANUAL IRRIGATION REMOVED SEVERAL SMALL CLOTS, NOW DRAINING CLEAR, SLIGHT HEMOPTYSIS. FEW CLOTS NOTED IN DOWN DRAIN TUBE. WILL CONTINUE TO MONITOR
--- NOTE | 2023-03-04 03:15 | NUR ---
SHIFT SUMMARY PT'S YOSEPH WAS ADDRESSED THROUGH THE IMPLEMENTATION OF CONTINUOUS BLADDER IRIGATION PER DR ORDERS. N/S STARTED AT 125 ML/HR. PT PULLED OUT LEFT FOREARM IV AT 0245, CATHETER TIP INTACT. FLUIDS D/LIDIA AND REMAINING IV PROTECTED VIA COBAN TO PREVENT BEING PULLED OUT.PT REFUSED FURTHER FLUIDS, PT REFUSED O2 VIA FACE MASK OR N/C. WILL CONTINUE TO MONITOR AND REDIRECT PT. BED IN LOW POSITION, NONSKID SOCKS IN PLACE, CALL WILLIAM WITHIN REACH, SIDE RAILS UP, AND PT WITHIN VIEW OF STAFF. VITALS STABLE, O2 DIPPING DURING SLEEP. WILL CONTINUE TO MONITOR.
[2023-03-04 03:16] VITALS: BP 117/66
--- NOTE | 2023-03-04 04:45 | NUR ---
I HAVE OBSERVED/ASSISTED STUDENT NURSE INTERVENTIONS AND DOCUMENTATIONS OF PT. I AGREE WITH BOTH. RUBIN Gallo RN
[2023-03-04 07:35] VITALS: BP 109/63
[2023-03-04 09:11] LABS: International Normalized Ratio 1.06; Prothrombin Time Results 11.1 Sec (9.7-11.5)
[2023-03-04 09:22] LABS: Ferritin, Serum 731 ng/mL (26-388); Iron Serum 50 ug/dL (65-175); Percent Saturation 17.9 % (20.0-50.0); Total Iron Binding Capacity 280 ug/dL (250-450); Uric Acid, Blood 10.8 mg/dL (3.5-7.2)
[2023-03-04 09:35] LABS: Albumin, Blood 2.5 g/dL (3.4-5.0); Anion Gap 12 mmol/L (6-16); Blood Urea Nitrogen 71 mg/dL (8-24); Bun/Creatinine Ratio 10.3 (12.0-20.0); CO2, Blood 20 mmol/L (21-32); Calcium, Blood 8.6 mg/dL (8.5-10.1); Chloride, Blood 99 mmol/L (98-108); Creatinine, Blood 6.91 mg/dL (0.60-1.20); Glomerular Filtration Rate 8 (60-); Glucose, Blood 171 mg/dL (70-99); Phosphorus, Blood 7.7 mg/dL (2.5-4.9); Sodium, Blood 131 mmol/L (136-145)
[2023-03-04 09:37] LABS: Potassium, Blood 6.2 mmol/L (3.5-5.5)
[2023-03-04 15:34] VITALS: BP 120/66
--- NOTE | 2023-03-04 19:37 | NUR ---
MAKES NEEDS KNOWN, ALERT THROUGOUT THE DAY, K INCREASED TO 6.8, REPORTED TO DR RUIZ, MEDICATED WITH DEXTROSE AND IV INSULIN. K NOT 5.8, RELAYED TO PM RN, PATIENT PLEASANT TO CARE TODAY, USES CALL LIGHT, CALL LIGHT WITH IN REACH, NO OTHER CHANGES
[2023-03-04 20:17] VITALS: BP 135/63
[2023-03-05] VITALS (27 sets, daily range): BP systolic 112–147; BP diastolic 61–86
[2023-03-05 02:45] LABS: BASOPHILS ABSOLUTE AUTO 0.01 K/mm3 (0.00-0.23); BASOPHILS PERCENT AUTO 0 % (0-2); EOSINOPHILS PERCENT AUTO 0 % (0-6); Hemoglobin 9.2 g/dL (13.5-17.5); IMMATURE GRAN ABSOLUTE AUTO 0.07 K/mm3 (0.00-0.10); IMMATURE GRAN PERCENT AUTO 1 % (0-1); LYMPHOCYTES ABSOLUTE AUTO 0.77 K/mm3 (0.84-5.20); LYMPHOCYTES PERCENT AUTO 8 % (21-46); MONOCYTES ABSOLUTE AUTO 0.49 K/mm3 (0.16-1.47); MONOCYTES PERCENT AUTO 5 % (4-13); Mean Corpuscular HGB 29.1 pg (26.0-34.0); Mean Corpuscular HGB Conc 32.9 g/dL (31.5-36.5); Mean Corpuscular Volume 89 fL (80-100); Mean Platelet Volume 9.4 fL (9.1-12.4); NEUTROPHILS ABSOLUTE AUTO 8.46 K/mm3 (1.96-9.15); NEUTROPHILS PERCENT AUTO 86 % (41-73); Platelet Count 284 K/mm3 (150-400); RDW Coefficient Variation 14.1 % (11.7-14.2); RDW Standard Deviation 46.1 fL (35.1-46.3); Red Blood Cell Count 3.16 M/mm3 (4.30-5.90)
[2023-03-05 02:50] LABS: Base Excess Venous -7.3 mmol/L; Bicarbonate Venous 18.8 mmol/L (24.0-30.0); PCO2 Venous 42.4 mmHg (38-42)
[2023-03-05 02:51] LABS: pH Blood Venous 7.27 (7.34-7.37)
--- NOTE | 2023-03-05 03:23 | NUR ---
CALL TO DR FRY WITH [facility] RESULTS. PT RESTLESS, TRYING TO REMOVE BIPAP MASK. C/O ITCHING. ORDER OBTAINED FOR IV BENADRYL ONE TIME DOSE.
[2023-03-05 03:24] LABS: Albumin, Blood 2.7 g/dL (3.4-5.0); Anion Gap 11 mmol/L (6-16); Blood Urea Nitrogen 78 mg/dL (8-24); CO2, Blood 20 mmol/L (21-32); Calcium, Blood 8.7 mg/dL (8.5-10.1); Chloride, Blood 99 mmol/L (98-108); Creatinine, Blood 6.48 mg/dL (0.60-1.20); Glomerular Filtration Rate 8 (60-); Glucose, Blood 160 mg/dL (70-99); Phosphorus, Blood 7.3 mg/dL (2.5-4.9); Potassium, Blood 6.3 mmol/L (3.5-5.5); Sodium, Blood 130 mmol/L (136-145)
--- NOTE | 2023-03-05 04:17 | NUR ---
ARRIVAL TO ICU PT ARRIVED TO ICU 9 AT 0145 AFTER A OPTICIAN APPRENTICE ON MEDICAL FLOOR; DR FRY AT BEDSIDE EXPLAINING THE ISSUE IS FLUID OVERLOAD AND THAT THE PT NEEDS BIPAP; HE WAS NOT MOVING AIR ON THE FLOOR. HE IS A/O X2-3; DOESN'T KNOW OWN LIMITS, IMPULSIVE AND PULLAS AT MASK; VERY RESTLESS. PT PLACED ON BIPAP 12/7, FIO2 30%; EASILY DESATURATED AND DOES NOT MOVE AIR WHEN LAYING FLAT OR ON HIS SIDE; MUST BE SITTING UP RIGHT TO OXYGENATE. AFEBRILE. HR 70'S. SBP 140'S. [address] FLANAGAN IN PL[address]; NOT IRRIGATING RIGHT NOW; PINK URINE OUTPUT. PALE SKIN COLOR NOTED. SEE SHIFT ASSESSMENT FOR FULL ASSESSMENT. DR FRY NOTIFIED OF CRITICAL V[facility] pH AND POTASSIUM LABS; NEW ORDERS FOLLOWED.
--- NOTE | 2023-03-05 04:33 | NUR ---
UPDATE PT CONT TO PULL AT BIPAP MASK AND IS GETTING IRRITATED WITH STAFF; BREAK TAKEN OFF OF MASK AND CALL MADE TO DR FRY REGARDING RESTLESSNESS. NEW ORDERS PROVIDED FOR PRECEDEX GTT AND STATUS CHANGE TO ICU.
--- NOTE | 2023-03-05 06:48 | NUR ---
END OF SHIFT SUMMARY PT CONT TO BE RESTLESS AND IMPULSIVE, PRECEDEX TITRATED UP TO 0.7MCG/KG/MIN; CONT TO BE A/O X2-3. BIPAP SETTINGS CONT TO BE 12/7, FIO2 30%. HR 60-70'S. BP STABLE. AFEBRILE. FLANAGAN IN PLACE. WILL REPORT TO AM RN WHEN AVAILABLE.
[2023-03-05 07:12] LABS: COMPLEMENT C3, SERUM 188 mg/dL (82-167)
--- NOTE | 2023-03-05 08:30 | NUR ---
ASSUMED CARE BEDSIDE REPORT FROM TJ ERNST AT 0700. PT LAYING IN BED. BIPAP IN PLACE, 09/29/65% AT SHIFT CHANGE, TITRATING O2 DOWN. AT SHIFT CHANGE, PT OCCASIONALLY PULLING OFF MASK, REORIENTS EASILY, PRECEDEX INFUSING. PT NOW RESPONSIVE TO PAINFUL STIMULI, MOANS, DOES NOT FOLLOW COMMANDS. PRECEDEX TITRATED DOWN. LUNGS DIM THROUGHOUT. TV 350-400ML. SR, RATE 60'S. BP STABLE. ABD OBESE, SOFT, NON TENDER. BT X 4. THREE WAY CATH IN PLACE, PLUGGED IRRIGATION PORT. PINK URINE s CLOTS IN DRAINAGE BAG. WILL CONTINUE TO MONITOR.
--- NOTE | 2023-03-05 17:42 | NUR ---
SHIFT SUMMARY PT REMAINED ON BIPAP MOST OF SHIFT. 16/30%. PT AWOKE, ASKED FOR BREAK, PLACED ON 4L VIA NC. TOLERATING WELL. PT A&O X 2. FOLLOWS COMMANDS. PLEASANT, COOPERATIVE c CARE. LUNGS DIM, OCCASIONAL WHEEZE. SR, RATE 90'S. BP STABLE. ABD OBESE, SOFT, NON TENDER. BT X 4. FLANAGAN PATENT, DRAINING PINK URINE TO GRAVITY, 2500 ML URINE OUT THIS SHIFT. SCDS PLACED. WILL CONTINUE TO MONITOR UNTIL REPORT TO ONCOMING NURSE.
--- NOTE | 2023-03-05 19:32 | NUR ---
ASSUMED CARE PATIENT AWAKE/ALERT IN BED RESTING COMFORTABLY. NO FAMILY AT BEDSIDE. NC 2L IN PLACE. IV SALINE LOCKED. CALL LIGHT WITHIN REACH
[2023-03-06] VITALS (11 sets, daily range): BP systolic 101–142; BP diastolic 52–108
[2023-03-06 03:45] LABS: BASOPHILS ABSOLUTE AUTO 0.01 K/mm3 (0.00-0.23); BASOPHILS PERCENT AUTO 0 % (0-2); EOSINOPHILS PERCENT AUTO 0 % (0-6); Hematocrit 28.1 % (37.0-53.0); Hemoglobin 8.9 g/dL (13.5-17.5); IMMATURE GRAN ABSOLUTE AUTO 0.13 K/mm3 (0.00-0.10); IMMATURE GRAN PERCENT AUTO 1 % (0-1); LYMPHOCYTES PERCENT AUTO 7 % (21-46); MONOCYTES ABSOLUTE AUTO 0.91 K/mm3 (0.16-1.47); MONOCYTES PERCENT AUTO 9 % (4-13); Mean Corpuscular HGB 28.6 pg (26.0-34.0); Mean Corpuscular HGB Conc 31.7 g/dL (31.5-36.5); Mean Corpuscular Volume 90 fL (80-100); Mean Platelet Volume 9.5 fL (9.1-12.4); NEUTROPHILS ABSOLUTE AUTO 8.93 K/mm3 (1.96-9.15); NEUTROPHILS PERCENT AUTO 84 % (41-73); Platelet Count 306 K/mm3 (150-400); RDW Coefficient Variation 14.1 % (11.7-14.2); RDW Standard Deviation 46.3 fL (35.1-46.3); Red Blood Cell Count 3.11 M/mm3 (4.30-5.90); White Blood Cell Count 10.68 K/mm3 (4.00-11.30)
[2023-03-06 04:05] LABS: Albumin, Blood 2.7 g/dL (3.4-5.0); Anion Gap 8 mmol/L (6-16); Blood Urea Nitrogen 83 mg/dL (8-24); Bun/Creatinine Ratio 15.4 (12.0-20.0); CO2, Blood 24 mmol/L (21-32); Calcium, Blood 9.5 mg/dL (8.5-10.1); Chloride, Blood 104 mmol/L (98-108); Glomerular Filtration Rate 10 (60-); Glucose, Blood 137 mg/dL (70-99); Phosphorus, Blood 6.4 mg/dL (2.5-4.9); Potassium, Blood 5.9 mmol/L (3.5-5.5); Sodium, Blood 136 mmol/L (136-145)
--- NOTE | 2023-03-06 06:01 | NUR ---
SHIFT SUMMARY PATIENT A&O 2-3. FORGETFUL/CONFUSION EASILY REORIENTED. HAVING HALLUCINATIONS PER PATIENT "RATS RUNNING ALONG CEILING". PATIENT TOLERATED BIPAP THROUGHOUT NIGHT. FLANAGAN IN PLACE TO GRAVITY, CONTINUES WITH PINK TINGED URINE. ADEQUATE OUTPUT.
--- NOTE | 2023-03-06 08:34 | NUR ---
ASSUMED CARE REPORT FROM MEGGAN ERNST AT 0700. PT RESTING IN BED. A&OX 2, INTERMITTANT CONFUSION, ORIENTS EASILY. FOLLOWS COMMANDS. STATES HE IS FEELING BETTER. REPORTS CONTINUES SOB BUT STATES IMPROVED. C/O LEFT ARM PAIN. LEFT ARM IS SWOLLEN, 1+ EDEMA, TENDER. REDNESS NOTED PROXIMAL TO IV SITE, OUTLINED, IV REMOVED. CONSULTED PHARMACY, TREATED ORDERED PER MEDS ADMINSTERED YESTERDAY, ALSO RECOMMENDS ELEVATION AND ICE. EXP WHEEZE NOTED, REMAINS ON 2L VIA NC, O2 SATS 97&. NON PRODUCTIVE COUGH. SR ON MONITOR, RATE 80'S. BP STABLE. FLANAGAN PATENT, DRAINING PINK URINE TO GRAVITY. UP TO CHAIR, TWO PERSON PIVOT ASSIST. GOOD APPETITE. STATUS CHANGED TO MED s TELE. WILL CONTINUE TO MONITOR UNTIL REPORT TO MEDICAL FLOOR AND TRANSFER TO ROOM 347.
--- NOTE | 2023-03-06 09:02 | NUR ---
When talking about oral care pt said he brushed them yesterday. When talking about how we need to be brushing every day a few times a day, pt laughed and said now you tell me. Pt still declined to brush teeath.
--- NOTE | 2023-03-06 18:23 | NUR ---
SHIFT SUMMARY: PATIENT TRANSPORTED VIA WHEELCHAIR ARRIVED TO ROOM AT AROUND 0920 FROM ICU. PATIENT TRANSFERRED c 2 MAX ASSIST STAND PIVOT TO BED. PATIENT A&OX2-3. FORGETFULL BUT EASILY REDIRECTABLE. PLEASANT AND COOPERATIVE c CARE. DENIES CP/PRESSURE, N/V, SOB AND GENERALIZED PAIN. PATIENT ON O2 2L VIA NC c SPO2 RANGES 96-98%. PATIENT HAS EXPIRATORY WHEEZES T/O TO AUSCULATION. NOTED SWELLING TO L FOREARM FROM IV INFILTRATION YETERDAY. ICE PACK APPLIED TO AFFECTED SITE. BRUISING TO L ANKLE. [address] WAY FLANAGAN PATENT, DRAINING PINKISH COLOR URINE TO GRAVITY. REPOSITIONED, DRINKING AND EATING WELL. RECEIVED SCHEDULED MEDS PER EMAR. VITAL SIGNS REVIEWED. BED ALARM ON FOR SAFETY. CALL LIGHT IN REACH.
--- NOTE | 2023-03-07 04:25 | NUR ---
ABELINO A&O 2-3, FORGETFUL. CALLS OUT TO MAKE NEEDS KNOWN. SAT UP IN RECLINER WITH O2 VIA NC @ 2L. DENIES ANY CHEST PAIN OR DISCOMFORT. EDEMA CONTINUES LUE AND BLE. SOB WITH EXERTION TRANSFERRING 2 ASSIST MAX FROM CHAIR TO BED. WHEEZING DECREASED WHEN UP IN CHAIR, IN BED HE REPORTED DIFFICULTY BREATHING. HE IS STILL SATING 97 ON 2L. RESPIRATORY THERAPY ORDER FOR CONTINUE O2 MONITORING AND ALBUTEROL VIA NEBULIZER EVERY FOUR HOURS NEEDED. NEBULIZER TREATMENT EFFECTIVE AND SLEPT WELL IN BED THIS SHIFT. ICE PACK TO LEFT ARM PREVIOUS IV SITE WITH ELEVATION. SWELLING DOES NOT APPEAR TO WORSEN AREA HAS NOT MOVED PAST MARKED AREAS ON ARM. HE IS A TWO MAX ASSIST TO TRANSFER. BOWEL TONES PRESENT ALL 4 QUADRANTS WITH GOOD APPETITE. FLANAGAN DRAINING PINK URINE. CALL LIGHT WITHIN REACH.
[2023-03-07 06:07] VITALS: BP 122/56
[2023-03-07 06:30] LABS: BASOPHILS ABSOLUTE AUTO 0.02 K/mm3 (0.00-0.23); BASOPHILS PERCENT AUTO 0 % (0-2); EOSINOPHILS PERCENT AUTO 0 % (0-6); Hematocrit 27.6 % (37.0-53.0); Hemoglobin 8.7 g/dL (13.5-17.5); IMMATURE GRAN ABSOLUTE AUTO 0.33 K/mm3 (0.00-0.10); IMMATURE GRAN PERCENT AUTO 3 % (0-1); LYMPHOCYTES ABSOLUTE AUTO 0.95 K/mm3 (0.84-5.20); LYMPHOCYTES PERCENT AUTO 9 % (21-46); MONOCYTES ABSOLUTE AUTO 0.88 K/mm3 (0.16-1.47); MONOCYTES PERCENT AUTO 8 % (4-13); Mean Corpuscular HGB 28.9 pg (26.0-34.0); Mean Corpuscular HGB Conc 31.5 g/dL (31.5-36.5); Mean Corpuscular Volume 92 fL (80-100); Mean Platelet Volume 9.1 fL (9.1-12.4); NEUTROPHILS ABSOLUTE AUTO 8.62 K/mm3 (1.96-9.15); NEUTROPHILS PERCENT AUTO 80 % (41-73); Platelet Count 276 K/mm3 (150-400); RDW Coefficient Variation 14.5 % (11.7-14.2); RDW Standard Deviation 48.6 fL (35.1-46.3); Red Blood Cell Count 3.01 M/mm3 (4.30-5.90)
[2023-03-07 06:54] LABS: Albumin, Blood 2.6 g/dL (3.4-5.0); Anion Gap 6 mmol/L (6-16); Blood Urea Nitrogen 90 mg/dL (8-24); Bun/Creatinine Ratio 18.6 (12.0-20.0); CO2, Blood 24 mmol/L (21-32); Calcium, Blood 9.2 mg/dL (8.5-10.1); Chloride, Blood 106 mmol/L (98-108); Creatinine, Blood 4.84 mg/dL (0.60-1.20); Glomerular Filtration Rate 12 (60-); Glucose, Blood 158 mg/dL (70-99); Phosphorus, Blood 5.7 mg/dL (2.5-4.9); Potassium, Blood 5.6 mmol/L (3.5-5.5); Sodium, Blood 136 mmol/L (136-145)
[2023-03-07 07:18] VITALS: BP 129/76
[2023-03-07 15:13] VITALS: BP 129/71
[2023-03-07 16:08] LABS: A/G RATIO 0.9 (0.7-1.7); ALBUMIN 2.6 g/dL (2.9-4.4); ALPHA-1-GLOBULIN 0.5 g/dL (0.0-0.4); ALPHA-2-GLOBULIN 0.6 g/dL (0.4-1.0); BETA GLOBULIN 1.1 g/dL (0.7-1.3); GAMMA GLOBULIN 0.7 g/dL (0.4-1.8); GLOBULIN, TOTAL 2.9 g/dL (2.2-3.9); M-SPIKE Comment: g/dL (Not Observed); PROTEIN, TOTAL, SERUM 5.5 g/dL (6.0-8.5)
--- NOTE | 2023-03-07 18:14 | NUR ---
SUMMARY- PT ASKED FOR X2 PRN VENTOLIN BREATHING TREATMENTS THIS SHIFT. PT ALSO RECEIVED X4 SCHEDULED TREATMENTS. PT WAS TIGHT IN HIS CHEST AND WHEEZING MULTIPLE TIMES THIS SHIFT. BD DID HELP, BUT FOR ONLY MAX OF 2 HRS. MASHA IS WORKING WELL THIS SHIFT. PT IS A X2 MAX ASSIST TO THE RECLINER. AAOX2-3. FORGETFUL. CALLS APPROPRIATELY.
[2023-03-07 19:55] VITALS: BP 150/88
--- NOTE | 2023-03-08 03:52 | NUR ---
SHIFT UNREMARKABLE. PT TOOK 2100 MEDICATIONS WITHOUT DIFFICULTY, HAS SLEPT THROUGH MUCH OF REST OF SHIFT. AWAKES OCCASIONALLY TO REPOSITION, REQUEST PRN BREATHING TREATMENT. DENIES PAIN OVER COURSE OF SHIFT. GENERALLY ANXIOUS. SATTING >90% ON 5 L O2 VIA NC THROUGHOUT SHIFT. AOX2-3. PLEASANT, COOPERATIVE WITH CARE. HAS NOT GOTTEN OUT OF BED THIS SHIFT. FLANAGAN INTACT, DRAINING LIGHT PINK URINE TO FLANAGAN BAG. NO BLADDER IRRIGATION THROUGHOUT THIS SHIFT. AUDIBLE WHEEZE PRESENT THROUGHOUT SHIFT. BED LOCKED IN LOWEST POSITION. CALL LIGHT LEFT WITHIN REACH.
[2023-03-08 05:33] VITALS: BP 123/69
[2023-03-08 06:38] LABS: Albumin, Blood 2.7 g/dL (3.4-5.0); Anion Gap 8 mmol/L (6-16); Blood Urea Nitrogen 92 mg/dL (8-24); Bun/Creatinine Ratio 19.8 (12.0-20.0); CO2, Blood 23 mmol/L (21-32); Chloride, Blood 107 mmol/L (98-108); Creatinine, Blood 4.65 mg/dL (0.60-1.20); Glomerular Filtration Rate 12 (60-); Glucose, Blood 169 mg/dL (70-99); Potassium, Blood 5.4 mmol/L (3.5-5.5); Sodium, Blood 138 mmol/L (136-145)
[2023-03-08 07:11] VITALS: BP 120/69
[2023-03-08] MEDS ORDERED: ATOR10 PO (12:05)
[2023-03-08] MEDS ORDERED: BUPR150ER PO (12:09)
[2023-03-08] MEDS ORDERED: DULERA 200 MCG-13 GM INH (12:10)
[2023-03-08] MEDS ORDERED: Prednisone20 MG PO (12:11)
--- NOTE | 2023-03-08 15:32 | NUR ---
this rn called and gave report to alix corey at [facility]. all questions answered. pt left with all belongings via by transport.
--- NOTE | 2023-03-08 15:59 | NUR ---
DC-PT LEFT VIA BARIATRIC WC IN STABLE CONDITION VIA ARRANGED TRANSPORT WITH ALL BELONGINGS.
[2023-03-14 18:08] LABS: ANTIMYELOPEROXIDASE (MPO) ABS <0.2 units (0.0-0.9); ANTIPROTEINASE 3 (PR-3) ABS <0.2 units (0.0-0.9); ATYPICAL PANCA <1:20 titer (Neg:<1:20); CYTOPLASMIC (C-ANCA) <1:20 titer (Neg:<1:20); PERINUCLEAR (P-ANCA) <1:20 titer (Neg:<1:20)
== END 2023-03-08 15:49 | DRG 682 ==
LOC: ER 15:26 → MEDS 18:39 → ICUW 03-05 01:43 → ICUE 03-05 07:36 → MEDS 03-06 09:20 → ENPENDDIS 03-08 10:43 → MEDS 03-08 15:49
PROVIDERS: Emergency Medicine; Family Medicine; Hospitalist; Internal Medicine; Nurse Practitioner Acute Care; ADMIT Internal Medicine
PROC: 5A09357 Assistance with Respiratory Ventilation, Less than 24 Consecutive Hours, Continuous Positive Airway Pressure (ICD-10-PCS; principal; 2023-03-05)
DX: N17.9 Acute kidney failure, unspecified (principal); J96.01 Acute respiratory failure with hypoxia; E87.1 Hypo-osmolality and hyponatremia; Z68.43 Body mass index [BMI] 50.0-59.9, adult; I13.0 Hypertensive heart and chronic kidney disease with heart failure and stage 1 through stage 4 chronic kidney disease, or unspecified chronic kidney disease; I50.42 Chronic combined systolic (congestive) and diastolic (congestive) heart failure; D63.1 Anemia in chronic kidney disease; J44.9 Chronic obstructive pulmonary disease, unspecified; E87.5 Hyperkalemia; R31.9 Hematuria, unspecified; I35.0 Nonrheumatic aortic (valve) stenosis; N18.30 Chronic kidney disease, stage 3 unspecified; N32.0 Bladder-neck obstruction; E66.01 Morbid (severe) obesity due to excess calories; I25.10 Atherosclerotic heart disease of native coronary artery without angina pectoris; N13.9 Obstructive and reflux uropathy, unspecified; E86.0 Dehydration; I71.9 Aortic aneurysm of unspecified site, without rupture; K21.9 Gastro-esophageal reflux disease without esophagitis; E78.5 Hyperlipidemia, unspecified; Z85.46 Personal history of malignant neoplasm of prostate; Z95.5 Presence of coronary angioplasty implant and graft; Z87.440 Personal history of urinary (tract) infections; Z79.51 Long term (current) use of inhaled steroids; Z79.899 Other long term (current) drug therapy; Z79.02 Long term (current) use of antithrombotics/antiplatelets; Z79.2 Long term (current) use of antibiotics
CPT/HCPCS: 36415; 51798; 71045; 76770; 80053; 80069; 81001; 82140; 82550; 82728; 82803; 82947; 83516; 83520; 83540; 83550; 83735; 83880; 84132; 84165; 84300; 84484; 84550; 85025; 85027; 85610; 86037; 86160; 87086; 93005; 93010; 94640; 94660; 94664; 94760; 94762; 99285-25; A9270; J0612; J1200; J1644; J1815; J1940; J2060; J2930; J3470; J7030; J7050; J7799